=== PATIENT | male | born 1990 | race Caucasian/White ===

== ENCOUNTER 2018-06-06 18:52 | Emergency (ER) | payer BC, OTHER ==
[~2018-06-06] VITALS: Ht 167.6 cm; Wt 127.3 kg
[2018-06-06] MEDS ORDERED: FLUTISP (19:03)
[2018-06-06] MEDS ORDERED: ONDANSETRON 4MG/2ML VIAL (J2405) IV ONE (20:15)
[2018-06-06] MEDS ORDERED: KETOROLAC 30 MG/ML VIAL (J1885) IV ONE (20:15)
[2018-06-06] MEDS ORDERED: NS 1,000 ML IV ONE (20:15)
[2018-06-06 21:06] LABS: BASO % 0.2 % (0.0-1.0); EOS # 0.7 10^3/uL (0.0-0.50); EOS % 7.2 % (0.0-3.0); HEMATOCRIT 45.2 % (42.0-52.0); LYMPH # 1.9 10^3/uL (1.5-6.5); LYMPH % 18.8 % (24.0-44.0); MEAN CORPUSCULAR HEMOGLOBIN 29.5 pg (27.0-33.0); MEAN CORPUSCULAR HGB CONC 33.2 g/dl (32.0-36.5); MEAN CORPUSCULAR VOLUME 88.8 fl (80.0-96.0); MONO # 0.5 10^3/uL (0.0-0.8); MONO % 5.2 % (0.0-5.0); NEUTROPHILS # 6.8 10^3/uL (1.8-7.7); NEUTROPHILS % 68.1 % (36.0-66.0); PLATELET COUNT, AUTOMATED 229 10^3/uL (150-450); RED BLOOD COUNT 5.09 10^6/uL (4.30-6.10)
[2018-06-06 21:36] LABS: ALBUMIN 3.9 GM/DL (3.2-5.2); ALT/SGPT 66 U/L (12-78); BILIRUBIN,DIRECT 0.2 MG/DL (0.0-0.2); BILIRUBIN,TOTAL 0.5 MG/DL (0.2-1.0); BLOOD UREA NITROGEN 11 MG/DL (7-18); CALCIUM LEVEL 8.9 MG/DL (8.5-10.1); CARBON DIOXIDE LEVEL 25 MEQ/L (21-32); CHLORIDE LEVEL 104 MEQ/L (98-107); CREATININE FOR GFR 0.82 MG/DL (0.70-1.30); GLOMERULAR FILTRATION RATE > 60.0 (>60); GLUCOSE, FASTING 97 MG/DL (70-100); LIPASE 87 U/L (73-393); POTASSIUM SERUM 3.9 MEQ/L (3.5-5.1); SODIUM LEVEL 139 MEQ/L (136-145); TOTAL PROTEIN 7.1 GM/DL (6.4-8.2)
[2018-06-06] MEDS ORDERED: ISOVUE-370 76% 100ML VIAL (Q9967) As Ordered ONE (22:27)
--- NOTE | 2018-06-06 23:56 | REPVR ---
EXAM: CT Abdomen and Pelvis With Contrast EXAM DATE/TIME: 06/06/2018 11:06 PM CLINICAL HISTORY: 28 years old, male; Abdominal pain; Additional info: Generalized abd pain, n/v/d TECHNIQUE: Imaging protocol: Axial computed tomography images of the abdomen and pelvis with intravenous contrast. Coronal and sagittal reformatted images were created and reviewed. Radiation optimization: All CT scans at this facility use at least one of these dose optimization techniques: automated exposure control; mA and/or kV adjustment per patient size (includes targeted exams where dose is matched to clinical indication); or iterative reconstruction. Contrast material: ISO 370; Contrast volume: 100 ml; Contrast route: IV; COMPARISON: No relevant prior studies available. FINDINGS: ABDOMEN: Liver: There is a diffuse decrease in hepatic parenchymal density, consistent with fatty infiltration. Gallbladder and bile ducts: Normal. No calcified stones. No ductal dilation. Pancreas: Normal. No ductal dilation. Spleen: There is mild splenomegaly with a maximum span of 14 centimeters. No focal abnormalities demonstrated. Adrenals: Normal. No mass. Kidneys and ureters: Normal. No hydronephrosis. Stomach and bowel: Ahaustral appearance of the left and sigmoid colon, findings which can be seen in association with colitis. Appendix: No evidence of appendicitis. PELVIS: Bladder: Unremarkable as visualized. Reproductive: Unremarkable as visualized. ABDOMEN and PELVIS: Intraperitoneal space: Normal. No free air. No significant fluid collection. Bones/joints: No acute fracture. No dislocation. Soft tissues: Unremarkable. Vasculature: Normal. No abdominal aortic aneurysm. Lymph nodes: Normal. No enlarged lymph nodes. IMPRESSION: 1. There is a diffuse decrease in hepatic parenchymal density, consistent with fatty infiltration. 2. There is mild splenomegaly with a maximum span of 14 centimeters. No focal abnormalities demonstrated. 3. Ahaustral appearance of the left and sigmoid colon, findings which can be seen in association with colitis. Electronically signed by: Poncho Grover On 06/06/2018 23:56:15 PM
[2018-06-07] MEDS ORDERED: FLAG500T PO (00:44)
[2018-06-07] MEDS ORDERED: ONDA4TAB6 PO (00:44)
[2018-06-07] MEDS ORDERED: CIPR-249 PO (00:44)
[2018-06-07] MEDS ORDERED: metroNIDAZOLE (FLAGYL) 500 MG TAB PO ONE (00:45)
[2018-06-07] MEDS ORDERED: CIPROFLOXACIN 500 MG TAB PO ONE (00:45)
[2018-06-07 00:47] VITALS: BP 139/95
--- NOTE | 2018-06-07 07:30 | ED PDOC ---
Post-Departure Follow-Up yazan lea faxed formal report of ct abd/p for fu ejg Julien Tripp MD Jun 07, 2018 07:30
== END 2018-06-07 01:00 | disposition home or self-care (01) ==
LOC: M ED 18:52
DX: K52.9 Noninfective gastroenteritis and colitis, unspecified (principal); E66.01 Morbid (severe) obesity due to excess calories; R93.2 Abnormal findings on diagnostic imaging of liver and biliary tract; R93.3 Abnormal findings on diagnostic imaging of other parts of digestive tract; R16.1 Splenomegaly, not elsewhere classified; Z79.899 Other long term (current) drug therapy
CPT/HCPCS: 74177; 80048; 80076; 83690; 85025; 87040; 96361; 96374; 96375; 99284; J1885; J2405; Q9967

== ENCOUNTER → 2018-06-08 | Outpatient (REF) | payer OTHER ==
[~2018-06-08] MED LIST: CIPR-249 PO; FLAG500T PO; FLUTISP; ONDA4TAB6 PO
== END ==
LOC: M LAB REF 14:56
PROVIDERS: ATTEND Emergency Medicine
DX: K52.9 Noninfective gastroenteritis and colitis, unspecified (principal)

== ENCOUNTER → 2019-01-31 | Outpatient (REF) | payer OTHER | LOC: M LAB LCGH 18:18 | PROVIDERS: ATTEND Surgery | DX: K64.8 Other hemorrhoids (principal) ==

== ENCOUNTER 2019-07-16 03:01 | Emergency (ER) | payer OTHER ==
[~2019-07-16] VITALS: Ht 167.6 cm; Wt 120.5 kg
[2019-07-16] MEDS ORDERED: CLAR10CA3 PO (03:09)
[2019-07-16 05:10] VITALS: BP 106/52
--- NOTE | 2019-07-17 19:39 | ECGEPIP ---
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
== END 2019-07-16 05:26 | disposition home or self-care (01) ==
LOC: M ED 03:01 → EDBD 03:01 → M ED 05:26
DX: Z77.098 Contact with and (suspected) exposure to other hazardous, chiefly nonmedicinal, chemicals (principal); J30.1 Allergic rhinitis due to pollen; Z79.899 Other long term (current) drug therapy

== ENCOUNTER → 2020-10-23 | Outpatient (CLI) | payer OTHER ==
[~2020-10-23] MED LIST changes: +CLAR10CA3 PO
--- NOTE | 2020-10-23 17:21 | REPVR ---
PROCEDURE INFORMATION: Exam: CT Maxillofacial Without Contrast, Sinus Exam date and time: 10/23/2020 4:59 PM Age: 30 years old Clinical indication: Sinusitis; Chronic TECHNIQUE: Imaging protocol: CT Maxillofacial without contrast. Focus on the sinuses. Radiation optimization: All CT scans at this facility use at least one of these dose optimization techniques: automated exposure control; mA and/or kV adjustment per patient size (includes targeted exams where dose is matched to clinical indication); or iterative reconstruction. COMPARISON: No relevant prior studies available. FINDINGS: Frontal sinuses: Normal. No air-fluid levels. Ethmoid air cells: Normal. No air-fluid levels. Sphenoid sinuses: The dividing septum between the sphenoid sinuses inserts on the right carotid canal. Trace left sphenoid sinus mucosal thickening. The sphenoid ostia are clear and patent. Maxillary sinuses: Prior uncinectomies and bilateral nasal antral window procedures. Trace right maxillary sinus mucosal thickening. The right maxillary sinus surgical drainage pathway remains widely patent. The left maxillary sinus is hypoplastic and nearly opacified by mucosal disease. Mucosal thickening opacifies the surgical drainage pathway, for example appreciated on the coronal imaging such as image 37 series 204. Nasal cavity/Septum: No nasal cavity masses. Mild sigmoid deviation of the nasal septum. For example, leftward bowing of the lower bony nasal septum demonstrating mild mass effect upon the left inferior turbinate. Orbital cavity: Orbits are normal. Globes are unremarkable. Bones/joints: No acute fracture seen. Chronic appearing defect of medial posterior left maxillary sinus wall could be postsurgical or related to chronic sinusitis. Soft tissues: Unremarkable. Dental: There is a supernumerary tooth of the right maxilla. IMPRESSION: Chronic sinusitis, as above. In particular chronic left maxillary sinusitis with opacification of the surgical drainage pathway. Electronically signed by: Debbie Valenzuela On 10/23/2020 17:21:12 PM
== END ==
LOC: M RAD 16:31
PROVIDERS: ATTEND Otolaryngology
DX: J32.0 Chronic maxillary sinusitis (principal)

== ENCOUNTER → 2021-03-27 | Outpatient (CLI) | payer OTHER ==
[~2021-03-27] MED LIST changes: +SALI0.652; +VITMTA PO
== END ==
LOC: M LABSMTC 10:58
PROVIDERS: ATTEND Anesthesiology
DX: Z01.812 Encounter for preprocedural laboratory examination (principal); Z20.822 Contact with and (suspected) exposure to COVID-19

== ENCOUNTER 2021-04-01 06:15 | Day surgery (SDC) | payer OTHER ==
[~2021-04-01] VITALS: Ht 165.1 cm; Wt 127.9 kg
[~2021-04-01 06:15] MED LIST changes: +LR 1,000 ML IV ONE; +dexameTHASONE 4 MG/ML 1ML VIAL (J1100 PER 1MG) IV ONE
[2021-04-01] MEDS ORDERED: METHYLENE BLUE 0.5% (5MG/ML) 10 ML AMP (PROVAYBLUE) As Ordered ONE (07:17)
[2021-04-01] MEDS ORDERED: EPINEPHrine 1MG/ML INJ 30ML MD-VIAL As Ordered ONE (07:17)
[2021-04-01] MEDS ORDERED: SODIUM CHLORIDE 0.9% NASAL GEL 15GM (AYR) As Ordered ONE (07:17)
[2021-04-01] MEDS ORDERED: LIDOCAINE W/EPINEPHRINE 1% 20ML VIAL As Ordered ONE (07:17)
[2021-04-01] MEDS ORDERED: fentaNYL 250 MCG/5 ML INJECTION As Ordered ONE (08:26)
[2021-04-01] MEDS ORDERED: METOCLOPRAMIDE INJ 10MG/2ML VIAL (J2765 PER 1) As Ordered ONE (08:26)
[2021-04-01] MEDS ORDERED: PHENYLephrine 500MCG 5ML (100MCG/ML) SYRINGE As Ordered ONE (08:26)
[2021-04-01] MEDS ORDERED: ePHEDrine SULFATE 25 MG/5 ML(5MG/ML) SYRINGE As Ordered ONE (08:26)
[2021-04-01] MEDS ORDERED: LIDOCAINE 2% 100MG/5ML SDV (FOR ANES.) As Ordered ONE (08:26)
[2021-04-01] MEDS ORDERED: MIDAZOLAM INJ 2MG/2ML VIAL (J2250 PER 1MG) As Ordered ONE (08:26)
[2021-04-01] MEDS ORDERED: SUGAMMADEX SODIUM 500 MG/5 ML VIAL (BRIDION) As Ordered ONE (08:26)
[2021-04-01] MEDS ORDERED: propofoL 200 MG/20 ML VIAL As Ordered ONE (08:26)
[2021-04-01] MEDS ORDERED: ACETAMINOPHEN 1000MG 100ML IV BTL (OFIRMEV) (J0131 PER 10MG) As Ordered ONE (08:26)
[2021-04-01] MEDS ORDERED: ONDANSETRON 4MG/2ML VIAL As Ordered ONE (08:26)
[2021-04-01] MEDS ORDERED: ROCURONIUM BROMIDE 50 MG/5 ML VIAL As Ordered ONE ×2 (08:26→08:32)
[2021-04-01] MEDS ORDERED: SEVOFLURANE INHAL SOLN 250 ML BTL As Ordered ONE (09:17)
[2021-04-01] MEDS ORDERED: LR 1,000 ML IV SCH ×2 (10:45)
[2021-04-01] MEDS ORDERED: PERCOCET 5MG/325MG TAB PO PRN (10:45)
[2021-04-01] MEDS ORDERED: fentaNYL 100 MCG/2 ML INJECTION IV PRN (10:45)
[2021-04-01] MEDS ORDERED: ONDANSETRON 4MG/2ML VIAL IV PRN (10:45)
[2021-04-01] MEDS ORDERED: METOCLOPRAMIDE INJ 10MG/2ML VIAL (J2765 PER 1) IV PRN (10:45)
[2021-04-01 12:10] VITALS: BP 129/62
== END 2021-04-01 12:15 | disposition home or self-care (01) ==
LOC: M SDC 06:15
PROVIDERS: ATTEND Otolaryngology
DX: J32.0 Chronic maxillary sinusitis (principal); J32.2 Chronic ethmoidal sinusitis; K21.9 Gastro-esophageal reflux disease without esophagitis; G43.909 Migraine, unspecified, not intractable, without status migrainosus; Z79.899 Other long term (current) drug therapy
CPT/HCPCS: 31254; 31267; 88305; C2625; J0131; J1100; J2250; J2370; J2405; J2765; J3010; Q9968

== ENCOUNTER → 2022-07-31 | Outpatient (CLI) | payer OTHER ==
[~2022-07-31] MED LIST changes: +FLUT50SP17; -FLUTISP; -LR 1,000 ML IV ONE; -dexameTHASONE 4 MG/ML 1ML VIAL (J1100 PER 1MG) IV ONE
== END ==
LOC: M PLAIMG 08:02
PROVIDERS: ATTEND Physician Assistant Medical
DX: J32.0 Chronic maxillary sinusitis (principal)

== ENCOUNTER → 2023-01-06 | Outpatient (REF) | payer OTHER ==
[~2023-01-06] MED LIST changes: +CVS10CAP7 PO; +OMEGCAP9 PO; +SALI0.6530 NARES
== END ==
LOC: M LAB REF 17:25
PROVIDERS: ATTEND Physician Assistant Medical
DX: J32.0 Chronic maxillary sinusitis (principal)

== ENCOUNTER → 2023-03-18 | Outpatient (REF) | payer OTHER ==
[~2023-03-18] MED LIST changes: -FLUT50SP17; +FLUTISP
== END ==
LOC: M LAB REF 17:21
PROVIDERS: ATTEND Physician Assistant Medical
DX: J32.0 Chronic maxillary sinusitis (principal)

== ENCOUNTER → 2023-03-24 | Outpatient (REF) | payer OTHER | LOC: M LAB REF 16:38 | PROVIDERS: ATTEND Physician Assistant Medical | DX: J32.0 Chronic maxillary sinusitis (principal) ==

== ENCOUNTER → 2023-08-05 | Outpatient (CLI) | payer OTHER ==
[~2023-08-05] MED LIST changes: +ONDA-282 PO; -ONDA4TAB6 PO; -SALI0.6530 NARES; +SODI88SP NARES
== END ==
LOC: M SLEEP HO 08:59
PROVIDERS: ATTEND Internal Medicine Critical Care Medicine
DX: G47.33 Obstructive sleep apnea (adult) (pediatric) (principal)